=== PATIENT | male | born 1965 | race African-American/Black ===

== ENCOUNTER 2024-05-07 17:06 | Emergency (ER) | payer MEDICAID ==
[~2024-05-07] VITALS: Ht 172.7 cm; Wt 107.0 kg
[2024-05-07 17:08] VITALS: O2SAT 94
[2024-05-07 17:10] VITALS: BP 139/85; PULSE 104; RESP 18; TEMP 98.4; O2SAT 95
[2024-05-07] MEDS: BACITRACIN ZINC OINT UDPKT TOP ONE (17:30)
[2024-05-07] MEDS: LIDOCAINE HCL/PF 1% 10 MG/ML 5ML VIAL INFIL ONE (17:30)
[2024-05-07] MEDS ORDERED: SULF1TAB48 MT (19:15)
[2024-05-07] MEDS ORDERED: IBUP-2029 MT (19:15)
== END 2024-05-07 20:39 | disposition home or self-care (01) ==
LOC: ER 17:06
DX: L02.415 Cutaneous abscess of right lower limb (principal); I10 Essential (primary) hypertension
CPT/HCPCS: 87070; 87186; 87205; 87077; 10060; 99283; J3490; Z7610 ×4

== ENCOUNTER 2024-05-10 10:19 | Emergency (ER) | payer MEDICAID ==
[~2024-05-10] VITALS: Ht 172.7 cm; Wt 106.0 kg
[~2024-05-10 10:19] MED LIST: IBUP-2029 MT; SULF1TAB48 MT
[2024-05-10 10:25] VITALS: BP 114/72; PULSE 95; RESP 16; TEMP 98.4; O2SAT 97
== END 2024-05-10 11:00 | disposition home or self-care (01) ==
LOC: ER 10:19
DX: L02.31 Cutaneous abscess of buttock (principal); I10 Essential (primary) hypertension; Z48.00 Encounter for change or removal of nonsurgical wound dressing
CPT/HCPCS: 99281; Z7610

== ENCOUNTER 2024-08-02 05:56 | Emergency (ER) | payer MEDICAID ==
[~2024-08-02] VITALS: Ht 175.3 cm; Wt 141.4 kg
[2024-08-02 06:07] VITALS: BP 161/74; PULSE 108; RESP 16; TEMP 98.4; O2SAT 95
[2024-08-02] MEDS ORDERED: SULF1TAB48 MT (09:19)
[2024-08-02] MEDS ORDERED: CEPH500T MT (09:19)
== END 2024-08-02 09:43 | disposition home or self-care (01) ==
LOC: ER 05:56
DX: L02.415 Cutaneous abscess of right lower limb (principal)
CPT/HCPCS: 99283

== ENCOUNTER 2025-09-19 15:11 | Emergency (ER) | payer MEDICAID, OTHER ==
[~2025-09-19] VITALS: Ht 175.3 cm; Wt 102.0 kg
[~2025-09-19 15:11] MED LIST changes: +AMOX1TAB16 MT; +IBUP-1455 MT; -IBUP-2029 MT
[2025-09-19 15:44] VITALS: TEMP 37.5; O2SAT 96
[2025-09-19 16:53] LABS: BASOPHILS % 0.8 % (0.0-2.0); EOSINOPHILS % 1.3 % (0.0-5.0); HEMATOCRIT. 37.3 % (42.0-52.0); HEMOGLOBIN. 11.9 g/dL (14.0-18.0); LYMPHOCYTES % 24.5 % (20.0-50.0); MEAN PLATELET VOLUME 8.9 fl (7.4-10.4); MONOCYTES % 8.1 % (2.0-8.0); NEUTROPHILS % 65.3 % (40.0-76.0); PLATELET 381 x1000/uL (130-400); RED BLOOD CELL COUNT 4.48 mill/uL (4.7-6.1); RED CELL DISTRIBUTION WIDTH 19.3 % (11.6-14.6)
[2025-09-19 17:12] LABS: CREATININE 0.8 mg/dL (0.6-1.3); UREA NITROGEN BLOOD 5 mg/dL (9-23)
[2025-09-19] MEDS: INSULIN REGULAR (HUMULIN R) 1000UNITS/10ML VIAL IV ONE (17:43)
[2025-09-19] MEDS: SODIUM CHLORIDE 0.9% 1,000 ML IV ONE (17:43)
[2025-09-19] MEDS: VANCOMYCIN 1.25GM/250ML 250 ML IV ONE (19:45)
[2025-09-19] MEDS: INSULIN REGULAR (HUMULIN R) 1000UNITS/10ML VIAL IV NR (20:14)
[2025-09-19] MEDS: CEFTRIAXONE 1GM/50ML 50 ML IV ONE (20:15)
[2025-09-19 20:54] VITALS: BP 155/71; PULSE 104; RESP 16; O2SAT 95
[2025-09-19] MEDS ORDERED: CLIN-194 MT (21:53)
[2025-09-19] MEDS ORDERED: MUPI1OIN4 TP (21:57)
[2025-09-19] MEDS ORDERED: METF-416 MT (21:57)
[2025-09-19] MEDS: IOHEXOL-300 100 ML BOTTLE ONE (23:29)
== END 2025-09-20 00:09 | disposition home or self-care (01) ==
LOC: ER 15:11 → CMPBEDREQ 09-20 07:33
DX: L73.2 Hidradenitis suppurativa (principal); I10 Essential (primary) hypertension; Z79.84 Long term (current) use of oral hypoglycemic drugs
CPT/HCPCS: 99285; 74177; 96365; 96367; 96361; 96375; 80048; 82962; 85025; 36415; 96376; Q9967; J3373; J0696; J7030; J1815